=== PATIENT | female | born 1965 | race Caucasian/White ===

== ENCOUNTER → 2016-08-28 | Outpatient (CLI) | payer MEDICAID ==
[~2016-08-28] MED LIST: ALBUTEROL2 PUFFS/17 IN; AMOXIL500 M1 PO; CIPRO 250MG TA250 MG PO; HYDROXYZINE 25M25 MG PO; LORTAB 5/500 501 TAB PO; MEDROL 4MG. DOSE4 MG PO; PYRIDIUM 200MG200 MG PO; VICODIN 5/500 T1 TAB PO
--- NOTE | 2016-08-29 10:26 | RADIOLOGY REPORT PS360 ---
MRI-L-SPINE W/O, MRI-3D RENDERING/MYELOGRAM ORDERING PHYSICIAN : Indra Cazares MD PATIENT AGE: 50 years GENDER: Female INDICATION: DJD low back pain low back pain for years. Left leg pain. TECHNIQUE: Sagittal STIR, T1, T2, axial T1 and T2. On 1.5T Siemens wide bore MRI. 3-D MR myelogram image set obtained & performed on MRI workstation. Additional sagittal thin section T2 weighted dataset obtained from this latter acquisition as well (---76 CPT) COMPARISON: MRI L-spine FINDINGS Vertebral bodies intact. Disc space narrowing most pronounced L3/4. Minor levocurvature L-spine L5/S1. Disc intact. The prominent, exuberant facet hypertrophy bilaterally encroaches upon the neuroforamen and yields moderate/generous bilateral foraminal stenosis. Most pronounced at left foramen... L4/5. Degenerative disc space narrowing most evident to the right. Only trace spondylotic disc bulge noted at foramen. Most significant is the exuberant, very prominent facet hypertrophy bilaterally which yields mild/moderate spinal stenosis along with prominent left foraminal encroachment & stenosis.. Moderate right foraminal encroachment.... L3/4. Degenerative disc space narrowing. Mild reactive endplate changes. Scant <2mm retrolisthesis. Mild diffuse disc bulge most evident towards left foramen. The previous central disc protrusion perhaps has shown trace regression since 2012. Generous prominent facet hypertrophy although not as pronounced as levels below this.. Overall features yield Moderate Spinal stenosis with bilateral foraminal stenosis, left greater the right L2/3. Disc intact well-maintained with only mild foraminal disc bulge.. Minor facet prominence. Neural foramen patent with only very minor encroachment. L1/2 disc intact, unremarkable. Foramen widely patent graft T12/L1 disc intact unremarkable as is T 11/12 disc. 3-D MR myelogram image set demonstrates the moderate spinal stenosis at L3/4 and L4/5. The tapering of the spinal canal is most evident at these levels due mainly due to to the exuberant facet hypertrophy at both levels IMPRESSION: 1. Exuberant facet hypertrophy(primary feature) , along with mild degenerative disc change -result in moderate spinal stenosis & bilateral foraminal encroachment , most evident at L3/4, followed by L4/5. Details in text 2.. Findings are very similar to the previous 2012 exam. No prominent new findings only - Only slight progressive the prominent exuberant facet hypertrophy at L3/4, L4/5, L5/S1. This prominent facet hypertrophy is the primary component this patient's spinal stenosis at L4/5 and L3/4. & It also accounts for the moderate foraminal encroachment bilaterally at L5/S1
== END ==
LOC: RAD 08-25 13:45
DX: M19.90 Unspecified osteoarthritis, unspecified site (principal)